=== PATIENT | female | born 1955 | race Caucasian/White ===

== ENCOUNTER 2016-10-26 05:44 | Day surgery (SDC) | payer MEDICARE, OTHER ==
[~2016-10-26 05:44] MED LIST: ABILIFY15 M1 PO; CELEBREX200 MG; CYMBALTA60 M1 PO; CYMBALTA60 MG; ELAVIL25 MG; KLONOPIN1 MG; LYRICA150 MG; LYRICA225 M1 PO; MORPHINE SU15 MG/TAB PO; MORPHINE SULFAT3010 PO; OPANA ER20 MG; OPANA ER40 MG; SEROQUEL XR150 M1 PO; TIZANIDINE HCL4 M2 PO; WELLBUTRIN SR150 MG
[2016-10-26 06:38] LABS: ANION GAP 11 mmol/L (0-20); BLOOD UREA NITROGEN 8 mg/dl (6-24); CARBON DIOXIDE-VENOUS 30 mmol/L (22-32); CHLORIDE 102 mmol/l (96-110); CREATININE 0.68 mg/dl (0.50-1.10); GLUCOSE 95 mg/dL (70-110); SODIUM 139 mmol/L (135-145); eGFR VALUE FOR BLACK >90 mL/Min
[2016-10-26 06:40] LABS: POTASSIUM 4.1 mmol/L (3.7-5.1)
[2017-03-20] MEDS ORDERED: LIDOCAINE1 EACH TD (13:57)
[2017-03-20] MEDS ORDERED: FLONASE ALLERG9.9 ML (14:12)
[2017-03-22] MEDS ORDERED: METOPROLOL SUCC25 M1 PO (14:29)
[2017-03-22] MEDS ORDERED: ASPIRIN81 M1 PO (14:29)
[2017-03-22] MEDS ORDERED: ZITHROMAX250 M1 PO (14:31)
[2017-03-22] MEDS ORDERED: OMNICEF PO (14:31)
[2017-03-22] MEDS ORDERED: KEPPRA500 M3 PO (14:32)
== END 2016-10-26 09:45 ==
LOC: ENDOS 05:44 → SHSC 05:46
PROVIDERS: Anesthesiology
PROC: 0DBK8ZX Excision of Ascending Colon, Via Natural or Artificial Opening Endoscopic, Diagnostic (ICD-10-PCS; principal; 2016-10-26)
PROC: 0DBL8ZX Excision of Transverse Colon, Via Natural or Artificial Opening Endoscopic, Diagnostic (ICD-10-PCS; 2016-10-26)
PROC: 0DBN8ZX Excision of Sigmoid Colon, Via Natural or Artificial Opening Endoscopic, Diagnostic (ICD-10-PCS; 2016-10-26)
DX: Z12.11 Encounter for screening for malignant neoplasm of colon (principal); D12.2 Benign neoplasm of ascending colon; D12.3 Benign neoplasm of transverse colon; K63.5 Polyp of colon; K57.30 Diverticulosis of large intestine without perforation or abscess without bleeding; K64.8 Other hemorrhoids; F41.9 Anxiety disorder, unspecified; F32.9 Major depressive disorder, single episode, unspecified; E66.9 Obesity, unspecified; Z79.899 Other long term (current) drug therapy; Z79.891 Long term (current) use of opiate analgesic; Z98.890 Other specified postprocedural states